=== PATIENT | female | born 1965 | race African-American/Black ===

== ENCOUNTER 2016-10-16 23:54 | Emergency (ER) | payer MEDICAID ==
[2016-10-17 01:32] VITALS: BP 113/80
== END 2016-10-17 01:32 | disposition home or self-care (01) ==
LOC: ED 23:54
DX: S39.012A Strain of muscle, fascia and tendon of lower back, initial encounter (principal); Z79.891 Long term (current) use of opiate analgesic; Z79.1 Long term (current) use of non-steroidal anti-inflammatories (NSAID); Z79.899 Other long term (current) drug therapy; V89.2XXA Person injured in unspecified motor-vehicle accident, traffic, initial encounter; Y93.89 Activity, other specified; Y92.89 Other specified places as the place of occurrence of the external cause; Y99.8 Other external cause status